=== PATIENT | female | born 1955 | race African-American/Black ===

== ENCOUNTER 2018-03-07 13:24 | Emergency (ER) | payer BC, OTHER ==
[~2018-03-07 13:24] MED LIST: Sodium Chloride 0.9% 1,000 ML BAG ONE
[2018-03-07 14:39] LABS: INR-International Normal Ratio 1.1; PTT 32.1 SEC (22.9-36.1); Prothrombin Time 13.9 SEC (12.0-14.7)
[2018-03-07] MEDS ORDERED: Promethazine HCl 25 MG/ML VIAL ONE (14:40)
[2018-03-07] MEDS ORDERED: Benzonatate 100 MG CAP ONE (14:40)
[2018-03-07] MEDS ORDERED: Diphenoxylate HCl/Atropine Tablet ONE (14:40)
[2018-03-07 14:51] LABS: ALT (SGPT) 63 U/L (8-55); AST (SGOT) 59 U/L (5-34); Albumin 3.9 g/dL (3.4-4.8); Alkaline Phosphatase 122 U/L (40-150); Anion Gap 16 mmol/L (10-20); BUN (Urea Nitrogen) 13 mg/dL (9.8-20.1); Bilirubin, Total 2.4 mg/dL (0.2-1.2); Calc. Creatinine Clearance 0 mL/min (70-130); Calcium 9.9 mg/dL (7.8-10.44); Carbon Dioxide 23 mmol/L (23-31); Chloride 99 mmol/L (98-107); Estimated GFR-MDRD 39; Glucose 111 mg/dL (80-115); Potassium 3.4 mmol/L (3.5-5.1); Protein, Total 7.9 g/dL (6.0-8.3); Sodium 135 mmol/L (136-145)
[2018-03-07 14:52] LABS: Acetaminophen Less than 6.0 mcg/mL (10.0-30.0); Alcohol Less than 10 mg/dL (Less than 10); Salicylate Less than 8.0 mg/dL (15.0-30.0)
[2018-03-07 14:54] LABS: CKMB 0.4 ng/mL (0-6.6); Troponin I Less than 0.010 ng/mL (< 0.028)
--- NOTE | 2018-03-07 14:55 | RAD ---
RADIOGRAPH CHEST 1 VIEW: Date: 03/07/18. Time: 2:21 p.m. HISTORY: A 62-year-old female with hemoptysis. COMPARISON: None. FINDINGS: There is a moderate-sized patchy, faint region of irregularly shaped opacity overlying the right uppe r lobe. There are prominent calcified right mediastinal and right hilar lymph nodes, and there is a prominent calcified pulmonary granuloma in the right mid lung zone. The cardiomediastinal silhouette is other capellan normal. No pneumothorax or pulmonary edema. The lateral costophrenic angles are sharp. IMPRESSION: 1. Right upper lobe opacity. It is presumed that this represents pneumonia. Following treatment, s erial followup chest radiographs are recommended, beginning in 1-2 weeks, until complete resolution. If this does not resolve, then CT would be recommended. 2. Evidence of old (inactive) right-sided granulomatous disease. BAN [] POS: [facility]
[2018-03-07 14:56] LABS: #Basophils 0.1 thou/uL (0.0-0.2); #Lymphocytes 2.6 thou/uL (1.20-3.40); #Monocytes 1.2 thou/uL (0.11-0.59); #Neutrophils 11.1 thou/uL (1.40-6.50); %Basophils 0.5 % (0.0-1.0); %Eosinophils 0.2 % (0.0-10.0); %Lymphocytes 17.2 % (21.0-51.0); %Monocytes 7.7 % (0.0-10.0); %Neutrophils 74.3 % (42.0-75.0); Hemoglobin 10.2 g/dL (12.0-16.0); Hypochromia SLIGHT = 6-15 cells (100X) (0-5/hpf); MDiff Complete? YES; Mean Corpuscular HGB CONC 31.9 g/dL (32.0-36.0); Mean Corpuscular Hemoglobin 24.1 pg (27.0-31.0); Mean Corpuscular Volume 75.5 fl (81.0-99.0); Mean Platelet Volume 6.5 fL (7.4-10.4); Microcytosis SLIGHT = 6-15 cells (100X) (0-5/hpf); PLT Morphology Comment Appears Increased; Platelet Count 424 thou/uL (130-400); Polychromasia SLIGHT = 2-3 cells (100X) (0-2/hpf); RBC Distribution Width 16.4 % (11.5-14.5); Red Blood Cell (RBC) Count 4.25 mill/uL (4.20-5.40); White Blood Cell (WBC) Count 14.9 thou/uL (4.8-10.8)
--- NOTE | 2018-03-07 15:12 | CT ---
NONCONTRAST CT HEAD: Date: 03-07-18 History: Near syncope, dizziness. FINDINGS: There is no evidence of a hemorrhage, acute infarction, mass effect or midline shift. The ventricular system is normal in size, shape, and position. Visualized paranasal sinuses and mastoid air cells ar e clear. The calvarial structures are intact. IMPRESSION: No acute intracranial abnormality is demonstrated. POS: [facility]
[2018-03-07 15:55] LABS: Bilirubin Moderate (Negative); Blood, Urine Trace (Negative); Glucose, Urine (Dipstick) 100 mg/dL (Negative); Leukocyte Negative (Negative); Nitrite Positive (Negative); Protein, Urine (Dipstick) > or equal to 300 mg/dL (Neg-Trace); pH, Urine 5.5 (5.0-9.0)
[2018-03-07 16:05] LABS: Amphetamine Not Detected (NotDetected); Barbiturates Screen Not Detected (NotDetected); Benzodiazepine Screen Not Detected (NotDetected); Cocaine Metabolite Screen Not Detected (NotDetected); Medtox Control Line Valid? VALID (VALID); Methadone Not Detected (NotDetected); Methamphetamine Not Detected (NotDetected); Opiate Screen Not Detected (NotDetected); Oxycodone Screen Not Detected (NotDetected); Phencyclidine (PCP) Not Detected (NotDetected); THC/Cannabinoid Screen Not Detected (NotDetected); Tricyclic Screen Not Detected (NotDetected)
[2018-03-07 16:10] LABS: Clarity Cloudy (Clear); RBC/HPF 0-3 HPF (0-3)
[2018-03-07 16:11] LABS: Bacteria/HPF 2+ HPF (None Seen); Specific Gravity, Urine 1.025 (1.002-1.036); WBC/HPF None Seen HPF (0-3)
[2018-03-07 16:12] LABS: Crystals/HPF 2+ AMORPH URATES HPF (Negative)
[2018-03-07] MEDS ORDERED: cefTRIAXone\\ROCEPHIN 1 GM VIAL ONE (17:53)
--- NOTE | 2018-03-07 18:18 | CT ---
CT ABDOMEN AND PELVIS WITHOUT CONTRAST: 03/07/18 HISTORY: Altered mental status. FINDINGS: Absence of oral and IV contrast reduces the sensitivity for the exam particularly for evaluation of s olid organs and bowel. Patchy infiltrates are seen in the lower lung herman. Calcified granulomas are seen in the liver and spleen. No calcified gallstones are seen. No free air or free fluid is noted in the abdomen and pelvi s. A small hiatal hernia is present. No calculi is seen in the kidneys, ureters or the urinary bladde r. No hydroureteronephrosis noted on either side. The small bowel loops are not abnormally dilated. N o pericolonic inflammatory changes are seen. There is colonic diverticulosis. The patient is post hys terectomy. There are vascular calcifications without evidence of aneurysmal dilatation of the abdominal aorta. D egenerative changes seen in the spine. There is a 2 cm left adrenal nodule with attenuation values me asuring 25 Hounsfield units. IMPRESSION: 1. No CT evidence of urinary tract calculi or obstruction. 2. Calcified granulomas in the liver and spleen. 3. Small hiatal hernia. 4. Sigmoid diverticulosis. 5. 2 cm left adrenal mass. Recommend CT scan of the abdomen using the adrenal protocol with and without IV contrast on a nonemergent basis. POS: [facility]
[2018-03-07 20:14] LABS: Hemoglobin A1c 5.8 % (4.0-6.0)
== END 2018-03-07 18:49 | disposition short-term general hospital (02) ==
LOC: MADERS 13:24
DX: J18.9 Pneumonia, unspecified organism (principal); E86.0 Dehydration; I10 Essential (primary) hypertension; F32.9 Major depressive disorder, single episode, unspecified; Z79.899 Other long term (current) drug therapy
CPT/HCPCS: 36415; 51701; 70450; 71045; 74176; 80053; 80306; 80307; 81001; 82550; 82553; 83036; 83880; 84484; 85025; 85610; 85730; 87040; 87086; 93005; 94760; 96365; 96375; 96376; A4353; J0696; J1956; J2550; J7050; J7620

== ENCOUNTER 2018-08-03 07:20 | Emergency (ER) | payer BC ==
[2018-08-03] MEDS ORDERED: Ondansetron HCl/PF 4 MG/2 ML Vial ONE ×2 (08:14→08:16)
[2018-08-03 08:21] LABS: Bilirubin Small (Negative); Blood, Urine Trace (Negative); Clarity Slightly Cloudy (Clear); Glucose, Urine (Dipstick) Negative (Negative); Leukocyte Negative (Negative); Nitrite Negative (Negative); Protein, Urine (Dipstick) > or equal to 300 mg/dL (Neg-Trace); Urobilinogen 0.2 mg/dL (0.2-1.0)
[2018-08-03 08:25] LABS: Specific Gravity, Urine 1.024 (1.002-1.036)
[2018-08-03 08:28] LABS: Bacteria/HPF 2+ HPF (None Seen); RBC/HPF 0-3 HPF (0-3); WBC/HPF 0-3 HPF (0-3)
[2018-08-03 08:29] LABS: Hyaline Casts/LPF 7-10 HYALINE CAST LPF (0-3 Hyaline)
[2018-08-03 08:30] LABS: ALT (SGPT) 29 U/L (8-55); AST (SGOT) 42 U/L (5-34); Albumin 4.7 g/dL (3.4-4.8); Alkaline Phosphatase 128 U/L (40-150); Anion Gap 15 mmol/L (10-20); BUN (Urea Nitrogen) 13 mg/dL (9.8-20.1); Bilirubin, Total 1.4 mg/dL (0.2-1.2); Calc. Creatinine Clearance 0 mL/min (70-130); Calcium 9.9 mg/dL (7.8-10.44); Carbon Dioxide 18 mmol/L (23-31); Chloride 109 mmol/L (98-107); Estimated GFR-MDRD 39; Globulin 3.9 g/dL (2.4-3.5); Glucose 86 mg/dL (80-115); Lipase 24 U/L (8-78); Potassium 3.3 mmol/L (3.5-5.1); Protein, Total 8.6 g/dL (6.0-8.3); Sodium 139 mmol/L (136-145)
[2018-08-03 08:34] LABS: #Basophils 0.1 thou/uL (0.0-0.2); #Monocytes 0.6 thou/uL (0.11-0.59); #Neutrophils 7.6 thou/uL (1.40-6.50); %Basophils 0.9 % (0.0-1.0); %Eosinophils 0.2 % (0.0-10.0); %Lymphocytes 19.2 % (21.0-51.0); %Monocytes 5.7 % (0.0-10.0); %Neutrophils 74.1 % (42.0-75.0); Anisocytosis SLIGHT = 6-15 cells (100X) (0-5/hpf); Hemoglobin 9.8 g/dL (12.0-16.0); MDiff Complete? YES; Mean Corpuscular HGB CONC 31.1 g/dL (32.0-36.0); Mean Corpuscular Hemoglobin 23.2 pg (27.0-31.0); Mean Corpuscular Volume 74.5 fL (78.0-98.0); Mean Platelet Volume 6.2 fL (7.4-10.4); Microcytosis SLIGHT = 6-15 cells (100X) (0-5/hpf); PLT Morphology Comment Appears Increased; Platelet Count 525 thou/uL (130-400); RBC Distribution Width 15.1 % (11.5-14.5); Red Blood Cell (RBC) Count 4.25 mill/uL (4.20-5.40); White Blood Cell (WBC) Count 10.3 thou/uL (4.8-10.8)
[2018-08-03] MEDS ORDERED: Sodium Chloride 0.9% 500 ML BAG ONE (09:25)
== END 2018-08-03 09:45 | disposition home or self-care (01) ==
LOC: MADERS 07:20
DX: R11.2 Nausea with vomiting, unspecified (principal); R19.7 Diarrhea, unspecified; I10 Essential (primary) hypertension; F32.9 Major depressive disorder, single episode, unspecified; Z87.891 Personal history of nicotine dependence; Z79.899 Other long term (current) drug therapy
CPT/HCPCS: 80053; 81003; 81015; 83690; 85025; 96361; 96374; J2405; J7050

== ENCOUNTER 2022-01-23 13:51 | Emergency (ER) | payer BC, MEDICARE ==
[2022-01-23 14:31] LABS: #Basophils 0.1 thou/uL (0.0-0.2); #Eosinphils 0.1 thou/uL (0.0-0.7); #Lymphocytes 2.8 thou/uL (1.20-3.40); #Monocytes 0.7 thou/uL (0.11-0.59); #Neutrophils 5.5 thou/uL (1.40-6.50); %Basophils 1.5 % (0.0-1.0); %Eosinophils 0.5 % (0.0-10.0); %Lymphocytes 30.7 % (21.0-51.0); %Monocytes 7.5 % (0.0-10.0); %Neutrophils 59.8 % (42.0-75.0); Hemoglobin 10.5 g/dL (12.0-16.0); Mean Corpuscular HGB CONC 31.7 g/dL (32.0-36.0); Mean Corpuscular Hemoglobin 25.9 pg (27.0-31.0); Mean Corpuscular Volume 81.6 fL (78.0-98.0); Platelet Count 404 thou/uL (130-400); RBC Distribution Width 16.2 % (11.5-14.5); Red Blood Cell (RBC) Count 4.06 mill/uL (4.20-5.40); White Blood Cell (WBC) Count 9.2 thou/uL (4.8-10.8)
[2022-01-23 14:48] LABS: ALT (SGPT) 28 U/L (8-55); AST (SGOT) 32 U/L (5-34); Albumin 4.2 g/dL (3.4-4.8); Alkaline Phosphatase 97 U/L (40-110); Anion Gap 17 mmol/L (10-20); BUN (Urea Nitrogen) 13 mg/dL (9.8-20.1); Bilirubin, Total 0.8 mg/dL (0.2-1.2); Calc. Creatinine Clearance 0 mL/min (70-130); Calcium 9.7 mg/dL (7.8-10.44); Carbon Dioxide 21 mmol/L (23-31); Chloride 103 mmol/L (98-107); Globulin 3.4 g/dL (2.4-3.5); Glucose 102 mg/dL (80-115); Potassium 3.7 mmol/L (3.5-5.1); Protein, Total 7.6 g/dL (5.8-8.1); Sodium 137 mmol/L (136-145)
[2022-01-23 15:07] LABS: Bilirubin Small (Negative); Blood, Urine Negative (Negative); Clarity Hazy (Clear); Glucose, Urine (Dipstick) Negative (Negative); Ketone, Urine Trace mg/dL (Negative); Leukocyte Negative (Negative); Nitrite Negative (Negative); Protein, Urine (Dipstick) Negative (Neg-Trace); Urobilinogen 0.2 mg/dL (Less than 2); pH, Urine 5.5 (5.0-9.0)
[2022-01-23] MEDS ORDERED: Aspirin Chewable 81 MG TAB ONE (16:09)
== END 2022-01-23 16:13 | disposition home or self-care (01) ==
LOC: MADERS 13:51
DX: R06.00 Dyspnea, unspecified (principal); I44.7 Left bundle-branch block, unspecified; K21.9 Gastro-esophageal reflux disease without esophagitis; I10 Essential (primary) hypertension; E11.9 Type 2 diabetes mellitus without complications; Z87.891 Personal history of nicotine dependence
CPT/HCPCS: 71045; 80053; 81003; 83880; 84443; 84484; 85025; 85379; 93005; 94760